=== PATIENT | female | born 1940 | race Caucasian/White ===

== ENCOUNTER 2017-04-22 18:23 | Observation (INO) | payer OTHER ==
[~2017-04-22] VITALS: Ht 170.2 cm; Wt 106.1 kg
[~2017-04-22 18:23] MED LIST: AMLODIPINE BESYL5 MG PO; ASPIR-TRIN325 M1 PO; ATORVASTATIN CA40 MG PO; CARAFATE100 MG/ML PO; CILOSTAZOL100 MG PO; CIPROFLOXACIN250 MG PO; ERGOCALCIF50000 UNIT PO; LEVOTHYROXINE112 MCG PO; LEVOTHYROXINE125 MCG PO; LISINOPRIL20 MG PO; LO-DOSE ASPIRIN81 M1 PO; LOPRESSOR50 MG PO; MELOXICAM7.5 MG PO; METFORMIN HCL500 M1 PO; METFORMIN HCL500 MG PO; NITROSTAT0.4 MG SL; PANTOPRAZOLE SO40 MG PO; SERTRALINE HCL50 MG PO; SUCRALFATE1 GM PO; SYNTHROID125 MCG PO; ZOFRAN4 MG PO
[2017-04-22 20:23] LABS: HEMATOCRIT 37.1 % (36.0-46.0); MCV 96.9 FL (83-99); MEAN PLAT.VOLUME 9.6 uM^3 (9.5-12.4); PLATELET COUNT 272 K/uL (156-360); RBC DIS.WIDTH-CV 13.2 % (11.8-14.6); RBC DIS.WIDTH-SD 47.4 % (39-53); RED BLOOD COUNT 3.83 M/uL (3.80-5.20); WHITE BLOOD COUNT 7.6 K/uL (4.1-10.2)
[2017-04-22 20:34] LABS: CHLORIDE 112 mEq/L (99-109); POTASSIUM 4.5 mEq/L (3.7-5.4); SODIUM 143 mEq/L (136-147)
[2017-04-22 20:37] LABS: GLUCOSE 89 mg/dL (70-99)
[2017-04-22 20:38] LABS: ANION GAP 9 MEQ/L (2-14); TOTAL BILIRUBIN 0.2 mg/dL (0.0-1.0)
[2017-04-22 20:40] LABS: ALKALINE PHOSPHATASE 96 IU/L (3-129); GFR ESTIMATE (CALCULATED) 39 mL/min/
[2017-04-22 20:41] LABS: UREA NITROGEN (BUN) 25 mg/dL (9-23)
[2017-04-22 20:43] LABS: CREATINE KINASE 79 IU/L (1-294)
[2017-04-22 20:44] LABS: TROP-I INTERPRETATION NEGATIVE; TROPONIN-I < 0.01 ng/mL (0.0-0.30)
[2017-04-22 20:58] LABS: ADD MIUA? NO; BILIRUBIN NEGATIVE; BLOOD NEGATIVE; COLOR YELLOW ((YELLOW)); GLUCOSE (STRIP) NEGATIVE; KETONES NEGATIVE; LEUKOCYTES NEGATIVE; NITRITE NEGATIVE; PROTEIN (STRIP) 30; SPECIFIC GRAVITY 1.019 (1.000-1.030); UCUL ADDED? NO; UROBILINOGEN 0.2 MG/DL (0.2-1.0)
[2017-04-23] VITALS (9 sets, daily range): BP systolic 156–191; BP diastolic 65–86
[2017-04-23] MEDS ORDERED: LOPRESSOR25 MG PO (01:57)
[2017-04-23] MEDS ORDERED: PEPCID AC20 MG PO (01:58)
[2017-04-23] MEDS ORDERED: AMARYL2 MG PO (01:58)
[2017-04-23] MEDS ORDERED: PHILLIPS' COLO1 EACH PO (01:58)
[2017-04-23] MEDS ORDERED: OMEPRAZOLE40 M1 PO (01:59)
[2017-04-23 07:58] LABS: POINT-OF-CARE METER ID UU13113700
[2017-04-23 09:15] LABS: HEMATOCRIT 33.5 % (36.0-46.0); MCH 31.3 PG (29.0-34.0); MCHC 31.9 G/DL (30.0-36.0); MEAN PLAT.VOLUME 9.9 uM^3 (9.5-12.4); PLATELET COUNT 238 K/uL (156-360); RBC DIS.WIDTH-CV 13.4 % (11.8-14.6); RBC DIS.WIDTH-SD 47.8 % (39-53); RED BLOOD COUNT 3.42 M/uL (3.80-5.20); WHITE BLOOD COUNT 6.6 K/uL (4.1-10.2)
[2017-04-23 09:35] LABS: ANION GAP 6 MEQ/L (2-14); CHLORIDE 109 MEQ/L (99-109); ERTH.SED.RATE 38 MM/HR (0-30); GFR ESTIMATE (CALCULATED) 57 mL/min/; GLUCOSE 95 mg/dL (70-99); POTASSIUM 3.9 MEQ/L (3.7-5.4); SAMPLE HEMOLYSIS CHECK 0; SAMPLE ICTERIC CHECK 0; SAMPLE LIPEMIA CHECK 0; SODIUM 139 MEQ/L (136-147); UREA NITROGEN (BUN) 18 mg/dL (9-23)
[2017-04-23 10:50] LABS: TROP-I INTERPRETATION NEGATIVE; TROPONIN-I < 0.01 ng/mL (0.0-0.30)
[2017-04-23] MEDS ORDERED: ACETAMINOPHEN650 M5 PO (11:06)
[2017-04-23] MEDS ORDERED: CYCLOBENZAPRINE10 MG PO (11:06)
[2017-04-23] MEDS ORDERED: PREDNISONE10 MG PO (11:06)
[2017-04-23] MEDS ORDERED: AMLODIPINE BESYL5 MG PO (11:06)
[2017-04-23 11:24] LABS: LYME DISEASE SEROLOGY SCREEN NEGATIVE (NEGATIVE)
[2017-04-23 12:36] LABS: POINT-OF-CARE METER ID UU13113700
[2017-04-23 14:22] LABS: C-REACTIVE PROTEIN < 1.0 MG/L (0-10)
[2017-04-23 17:06] LABS: POINT-OF-CARE METER ID UU13113700
[2017-04-23 21:41] LABS: POINT-OF-CARE METER ID UU13113700
[2017-04-24] VITALS: BP 170/60
[2017-04-24 04:25] VITALS: BP 160/58
[2017-04-24 05:53] LABS: HEMATOCRIT 35.4 % (36.0-46.0); MCH 31.4 PG (29.0-34.0); MCHC 32.2 G/DL (30.0-36.0); MCV 97.5 FL (83-99); MEAN PLAT.VOLUME 10.1 uM^3 (9.5-12.4); PLATELET COUNT 254 K/uL (156-360); RBC DIS.WIDTH-CV 13.5 % (11.8-14.6); RBC DIS.WIDTH-SD 48.9 % (39-53); RED BLOOD COUNT 3.63 M/uL (3.80-5.20); WHITE BLOOD COUNT 7.7 K/uL (4.1-10.2)
[2017-04-24 06:19] LABS: ANION GAP 6 MEQ/L (2-14); CHLORIDE 107 MEQ/L (99-109); GFR ESTIMATE (CALCULATED) 57 mL/min/; GLUCOSE 91 mg/dL (70-99); POTASSIUM 4.4 MEQ/L (3.7-5.4); SAMPLE HEMOLYSIS CHECK 0; SAMPLE ICTERIC CHECK 0; SAMPLE LIPEMIA CHECK 0; SODIUM 140 MEQ/L (136-147); UREA NITROGEN (BUN) 23 mg/dL (9-23)
[2017-04-24 07:07] VITALS: BP 140/60
[2017-04-24 08:09] LABS: POINT-OF-CARE METER ID UU14162513
== END 2017-04-24 10:18 | disposition home or self-care (01) ==
LOC: EME 18:23 → EDOF 04-23 00:39 → 5WEST 04-23 02:49
PROVIDERS: Hospitalist; Physician Assistant; Physician Assistant Medical; Student in an Organized Health Care Education/Training Program
DX: I16.9 Hypertensive crisis, unspecified (principal); I10 Essential (primary) hypertension; M79.1 Myalgia; E03.9 Hypothyroidism, unspecified; I25.10 Atherosclerotic heart disease of native coronary artery without angina pectoris; E11.9 Type 2 diabetes mellitus without complications; E78.5 Hyperlipidemia, unspecified; Z87.11 Personal history of peptic ulcer disease; M35.3 Polymyalgia rheumatica; M25.512 Pain in left shoulder; R70.0 Elevated erythrocyte sedimentation rate; Z88.5 Allergy status to narcotic agent; Z79.82 Long term (current) use of aspirin; Z79.84 Long term (current) use of oral hypoglycemic drugs
CPT/HCPCS: 71010; 80048; 80053; 81003; 82550; 82948; 84443; 84484; 85027; 85651; 86038; 86140; 86430; 86618; 93005; 99281; 99285; G0378; J0360; J1644; J1815; J1885; J2405; J3010; J3360; J7030; J7512

== ENCOUNTER 2017-06-10 15:22 | Inpatient (IN) | payer OTHER ==
[~2017-06-10] VITALS: Ht 170.2 cm; Wt 105.0 kg
[~2017-06-10 15:22] MED LIST changes: +ACETAMINOPHEN650 M5 PO; +AMARYL2 MG PO; +CYCLOBENZAPRINE10 MG PO; +LOPRESSOR25 MG PO; +OMEPRAZOLE40 M1 PO; +PEPCID AC20 MG PO; +PHILLIPS' COLO1 EACH PO; +PREDNISONE10 MG PO
[2017-06-10] MEDS ORDERED: NORCO 5/3251 TABLET PO (16:37)
[2017-06-10] MEDS ORDERED: ZOFRAN4 MG PO (16:52)
[2017-06-10 17:42] LABS: HEMATOCRIT 36.6 % (36.0-46.0); MCH 30.7 PG (29.0-34.0); MCHC 32.2 G/DL (30.0-36.0); MCV 95.3 FL (83-99); MEAN PLAT.VOLUME 9.5 uM^3 (9.5-12.4); PLATELET COUNT 252 K/uL (156-360); RBC DIS.WIDTH-CV 13.6 % (11.8-14.6); RBC DIS.WIDTH-SD 47.7 % (39-53); RED BLOOD COUNT 3.84 M/uL (3.80-5.20); WHITE BLOOD COUNT 12.1 K/uL (4.1-10.2)
[2017-06-10 17:55] LABS: CHLORIDE 107 mEq/L (99-109); SODIUM 138 mEq/L (136-147)
[2017-06-10 17:57] LABS: GLUCOSE 162 mg/dL (70-99)
[2017-06-10 17:58] LABS: ANION GAP 9 MEQ/L (2-14)
[2017-06-10 18:01] LABS: GFR ESTIMATE (CALCULATED) 42 mL/min/; UREA NITROGEN (BUN) 21 mg/dL (9-23)
[2017-06-10] MEDS ORDERED: ARTHRITIS PAIN650 M5 PO (19:05)
[2017-06-10] MEDS ORDERED: NORVASC5 MG PO (19:08)
[2017-06-10] MEDS ORDERED: SYNTHROID112 MCG PO (19:11)
[2017-06-10] MEDS ORDERED: PREDNISONE5 MG PO (19:16)
[2017-06-10 19:25] LABS: TROP-I INTERPRETATION NEGATIVE; TROPONIN-I < 0.01 ng/mL (0.0-0.30)
[2017-06-10 23:56] VITALS: BP 132/64
[2017-06-11 05:00] VITALS: BP 132/71
[2017-06-11 06:32] LABS: POINT-OF-CARE METER ID UU14208753
[2017-06-11 07:40] LABS: ANION GAP 6 MEQ/L (2-14); CHLORIDE 108 MEQ/L (99-109); GFR ESTIMATE (CALCULATED) 39 mL/min/; POTASSIUM 4.6 MEQ/L (3.7-5.4); SAMPLE HEMOLYSIS CHECK 0; SAMPLE ICTERIC CHECK 0; SAMPLE LIPEMIA CHECK 0; SODIUM 140 MEQ/L (136-147); UREA NITROGEN (BUN) 24 mg/dL (9-23)
[2017-06-11 07:41] LABS: GLUCOSE 73 mg/dL (70-99)
[2017-06-11 07:47] VITALS: BP 144/66
[2017-06-11 11:59] LABS: POINT-OF-CARE METER ID UU14188577
[2017-06-11 12:15] VITALS: BP 182/90
[2017-06-11 15:37] LABS: POINT-OF-CARE METER ID UU13113675
[2017-06-11 17:43] VITALS: BP 158/71
[2017-06-11 18:15] LABS: POINT-OF-CARE METER ID UU14208753
[2017-06-11 23:25] VITALS: BP 140/78
[2017-06-12] VITALS (7 sets, daily range): BP systolic 140–190; BP diastolic 50–85
[2017-06-12 06:35] LABS: POINT-OF-CARE METER ID UU14188577
[2017-06-12 07:10] LABS: HEMATOCRIT 31.7 % (36.0-46.0); MCH 30.6 PG (29.0-34.0); MCHC 31.2 G/DL (30.0-36.0); MCV 97.8 FL (83-99); MEAN PLAT.VOLUME 9.9 uM^3 (9.5-12.4); PLATELET COUNT 211 K/uL (156-360); RBC DIS.WIDTH-CV 13.7 % (11.8-14.6); RBC DIS.WIDTH-SD 49.1 % (39-53); RED BLOOD COUNT 3.24 M/uL (3.80-5.20); WHITE BLOOD COUNT 10.8 K/uL (4.1-10.2)
[2017-06-12 07:44] LABS: ANION GAP 11 MEQ/L (2-14); CHLORIDE 105 MEQ/L (99-109); GFR ESTIMATE (CALCULATED) 23 mL/min/; GLUCOSE 86 mg/dL (70-99); POTASSIUM 4.1 MEQ/L (3.7-5.4); SAMPLE HEMOLYSIS CHECK 0; SAMPLE ICTERIC CHECK 0; SAMPLE LIPEMIA CHECK 0; SODIUM 141 MEQ/L (136-147); UREA NITROGEN (BUN) 17 mg/dL (9-23)
[2017-06-12 17:08] LABS: POINT-OF-CARE METER ID UU14208753
[2017-06-12 21:29] LABS: POINT-OF-CARE METER ID UU14208750
[2017-06-12 21:46] LABS: POINT-OF-CARE METER ID UU14208750; POINT-OF-CARE USER ID STWHLR41
[2017-06-12 22:02] LABS: POINT-OF-CARE METER ID UU14208750
[2017-06-13] VITALS (7 sets, daily range): BP systolic 128–178; BP diastolic 58–79
[2017-06-13 04:06] LABS: POINT-OF-CARE METER ID UU14162508
[2017-06-13 06:50] LABS: POINT-OF-CARE METER ID UU14162508
[2017-06-13 07:04] LABS: HEMATOCRIT 29.8 % (36.0-46.0); MCH 31.5 PG (29.0-34.0); MCHC 32.2 G/DL (30.0-36.0); MCV 97.7 FL (83-99); MEAN PLAT.VOLUME 9.9 uM^3 (9.5-12.4); PLATELET COUNT 197 K/uL (156-360); RBC DIS.WIDTH-CV 13.8 % (11.8-14.6); RBC DIS.WIDTH-SD 49.2 % (39-53); RED BLOOD COUNT 3.05 M/uL (3.80-5.20); WHITE BLOOD COUNT 10.3 K/uL (4.1-10.2)
[2017-06-13 07:37] LABS: ANION GAP 5 MEQ/L (2-14); CHLORIDE 104 MEQ/L (99-109); GLUCOSE 91 mg/dL (70-99); POTASSIUM 4.5 MEQ/L (3.7-5.4); SAMPLE HEMOLYSIS CHECK 0; SAMPLE ICTERIC CHECK 0; SAMPLE LIPEMIA CHECK 0; SODIUM 139 MEQ/L (136-147); UREA NITROGEN (BUN) 17 mg/dL (9-23)
[2017-06-13 07:38] LABS: GFR ESTIMATE (CALCULATED) 57 mL/min/
[2017-06-13 11:37] LABS: POINT-OF-CARE METER ID UU14162508
[2017-06-13 16:31] LABS: POINT-OF-CARE METER ID UU14162508
[2017-06-13 21:01] LABS: POINT-OF-CARE METER ID UU14162508; POINT-OF-CARE USER ID STWHLR41
[2017-06-14 00:03] VITALS: BP 175/69
[2017-06-14 01:19] VITALS: BP 152/54
[2017-06-14 06:22] LABS: POINT-OF-CARE METER ID UU14162508
[2017-06-14 07:35] VITALS: BP 155/68
[2017-06-14 09:20] VITALS: BP 148/78
[2017-06-14] MEDS ORDERED: POLYETHYLENE GL17 GM PO (10:23)
[2017-06-14] MEDS ORDERED: ENDOCET 5-3251 EACH PO (10:23)
[2017-06-14] MEDS ORDERED: DOCUSATE SODIU100 MG PO (10:23)
[2017-06-14] MEDS ORDERED: AMLODIPINE BESY10 MG PO (10:23)
[2017-06-14 12:04] LABS: POINT-OF-CARE METER ID UU14162508
[2017-06-14] MEDS ORDERED: GLUCOTROL5 MG PO (16:00)
[2017-06-14] MEDS ORDERED: NOVOLOG 10100 UNITS/ SQ (16:05)
[2017-06-14] MEDS ORDERED: HEPARIN SO5000 UNIT4 SQ (16:07)
[2017-06-14] MEDS ORDERED: LIPITOR40 MG PO (16:08)
[2017-06-14] MEDS ORDERED: APRESOLINE10 MG IV (16:09)
[2017-06-14] MEDS ORDERED: MILK OF MAGN PO (16:11)
== END 2017-06-14 13:12 | DRG 493 ==
LOC: EME 15:22 → EDOF 19:34 → ENRESERV 19:45 → 3EAST 23:16 → 2EAST 06-12 08:01 → 3EAST 06-12 08:01 → ENRESERV 06-12 15:41 → 2EAST 06-12 17:43
PROVIDERS: Hospitalist; Internal Medicine; Internal Medicine Cardiovascular Disease; Physician Assistant; Physician Assistant Medical
PROC: 0PSF04Z Reposition Right Humeral Shaft with Internal Fixation Device, Open Approach (ICD-10-PCS; principal; 2017-06-11)
DX: S42.231A 3-part fracture of surgical neck of right humerus, initial encounter for closed fracture (principal); N17.9 Acute kidney failure, unspecified; E11.22 Type 2 diabetes mellitus with diabetic chronic kidney disease; E11.65 Type 2 diabetes mellitus with hyperglycemia; I13.10 Hypertensive heart and chronic kidney disease without heart failure, with stage 1 through stage 4 chronic kidney disease, or unspecified chronic kidney disease; Y92.254 Theater (live) as the place of occurrence of the external cause; W01.0XXA Fall on same level from slipping, tripping and stumbling without subsequent striking against object, initial encounter; M35.3 Polymyalgia rheumatica; M54.2 Cervicalgia; R55 Syncope and collapse; E03.9 Hypothyroidism, unspecified; E78.5 Hyperlipidemia, unspecified; N18.3 Chronic kidney disease, stage 3 (moderate); I25.10 Atherosclerotic heart disease of native coronary artery without angina pectoris; I73.9 Peripheral vascular disease, unspecified; Z87.891 Personal history of nicotine dependence; Z79.82 Long term (current) use of aspirin; Z79.52 Long term (current) use of systemic steroids; Z79.899 Other long term (current) drug therapy; Z87.11 Personal history of peptic ulcer disease; F32.9 Major depressive disorder, single episode, unspecified; E66.9 Obesity, unspecified; R00.1 Bradycardia, unspecified; I16.0 Hypertensive urgency; K58.0 Irritable bowel syndrome with diarrhea; K21.9 Gastro-esophageal reflux disease without esophagitis; M19.90 Unspecified osteoarthritis, unspecified site; F41.9 Anxiety disorder, unspecified; R11.2 Nausea with vomiting, unspecified; D64.9 Anemia, unspecified; E86.0 Dehydration; M81.0 Age-related osteoporosis without current pathological fracture; Z79.84 Long term (current) use of oral hypoglycemic drugs; Z82.49 Family history of ischemic heart disease and other diseases of the circulatory system; Z68.36 Body mass index [BMI] 36.0-36.9, adult
CPT/HCPCS: 70450; 71010; 72125; 73030; 73060; 73200; 76000; 80048; 81003; 82948; 84484; 85027; 93005; 94799; 99281; 99285; C1713; G0378; J0330; J0690; J1644; J1815; J1885; J2250; J2270; J2405; J2795; J3010; J7030; J7120; J7512

== ENCOUNTER 2017-06-14 11:12 | Inpatient (IN) | payer OTHER ==
[~2017-06-14] VITALS: Ht 170.2 cm; Wt 107.6 kg
[~2017-06-14 11:12] MED LIST changes: +AMLODIPINE BESY10 MG PO; +ARTHRITIS PAIN650 M5 PO; +DOCUSATE SODIU100 MG PO; +ENDOCET 5-3251 EACH PO; +NORCO 5/3251 TABLET PO; +NORVASC5 MG PO; +POLYETHYLENE GL17 GM PO; +PREDNISONE5 MG PO; +SYNTHROID112 MCG PO
[2017-06-14 13:15] VITALS: BP 158/58
[2017-06-14 15:27] VITALS: BP 142/74
[2017-06-14] MEDS ORDERED: GLUCOTROL5 MG PO (16:00)
[2017-06-14] MEDS ORDERED: NOVOLOG 10100 UNITS/ SQ (16:05)
[2017-06-14] MEDS ORDERED: HEPARIN SO5000 UNIT4 SQ (16:07)
[2017-06-14] MEDS ORDERED: LIPITOR40 MG PO (16:08)
[2017-06-14] MEDS ORDERED: APRESOLINE10 MG IV (16:09)
[2017-06-14] MEDS ORDERED: MILK OF MAGN PO (16:11)
[2017-06-14 16:48] LABS: POINT-OF-CARE METER ID UU13113712
[2017-06-14 18:47] LABS: HEMATOCRIT 31.9 % (36.0-46.0); MCH 31.3 PG (29.0-34.0); MCHC 31.7 G/DL (30.0-36.0); MCV 98.8 FL (83-99); MEAN PLAT.VOLUME 9.7 uM^3 (9.5-12.4); PLATELET COUNT 243 K/uL (156-360); RBC DIS.WIDTH-CV 13.5 % (11.8-14.6); RBC DIS.WIDTH-SD 49.1 % (39-53); RED BLOOD COUNT 3.23 M/uL (3.80-5.20)
[2017-06-14 19:10] LABS: ALKALINE PHOSPHATASE 65 IU/L (3-129); ANION GAP 7 MEQ/L (2-14); CHLORIDE 102 MEQ/L (99-109); GFR ESTIMATE (CALCULATED) 51 mL/min/; POTASSIUM 4.5 MEQ/L (3.7-5.4); SAMPLE HEMOLYSIS CHECK 0; SAMPLE ICTERIC CHECK 0; SAMPLE LIPEMIA CHECK 0; SODIUM 138 MEQ/L (136-147); TOTAL BILIRUBIN 0.4 MG/DL (0.0-1.0); UREA NITROGEN (BUN) 20 mg/dL (9-23)
[2017-06-14 19:11] LABS: GLUCOSE 173 mg/dL (70-99)
[2017-06-14 21:14] VITALS: BP 165/69
[2017-06-14 21:30] LABS: POINT-OF-CARE METER ID UU13113712
[2017-06-14 23:32] LABS: ADD MIUA? NO; BILIRUBIN NEGATIVE; BLOOD NEGATIVE; COLOR YELLOW ((YELLOW)); GLUCOSE (STRIP) NEGATIVE; KETONES NEGATIVE; LEUKOCYTES NEGATIVE; NITRITE NEGATIVE; PROTEIN (STRIP) NEGATIVE; UCUL ADDED? NO; UROBILINOGEN 0.2 MG/DL (0.2-1.0)
[2017-06-15 06:08] VITALS: BP 161/70
[2017-06-15 08:20] LABS: HEMATOCRIT 32.1 % (36.0-46.0); MCH 31.5 PG (29.0-34.0); MCHC 32.4 G/DL (30.0-36.0); MCV 97.3 FL (83-99); MEAN PLAT.VOLUME 9.6 uM^3 (9.5-12.4); PLATELET COUNT 260 K/uL (156-360); RBC DIS.WIDTH-CV 13.6 % (11.8-14.6); RBC DIS.WIDTH-SD 48.4 % (39-53); WHITE BLOOD COUNT 11.3 K/uL (4.1-10.2)
[2017-06-15 08:23] LABS: POINT-OF-CARE METER ID UU13113712
[2017-06-15 08:28] LABS: CHLORIDE 100 mEq/L (99-109); POTASSIUM 4.2 mEq/L (3.7-5.4); SODIUM 137 mEq/L (136-147)
[2017-06-15 08:30] LABS: GLUCOSE 132 mg/dL (70-99)
[2017-06-15 08:31] LABS: ANION GAP 10 MEQ/L (2-14)
[2017-06-15 08:33] LABS: GFR ESTIMATE (CALCULATED) 46 mL/min/
[2017-06-15 08:34] LABS: UREA NITROGEN (BUN) 18 mg/dL (9-23)
[2017-06-15 08:41] LABS: TROP-I INTERPRETATION NEGATIVE; TROPONIN-I < 0.01 ng/mL (0.0-0.30)
[2017-06-15 09:19] VITALS: BP 141/65
[2017-06-15 15:52] VITALS: BP 138/74
[2017-06-15 20:59] VITALS: BP 137/63
[2017-06-16 05:03] VITALS: BP 143/67
[2017-06-16 07:34] VITALS: BP 132/60
[2017-06-16 11:57] VITALS: BP 162/67
[2017-06-16 15:37] VITALS: BP 139/63
[2017-06-16 16:51] LABS: POINT-OF-CARE METER ID UU13113712
[2017-06-16 21:25] LABS: POINT-OF-CARE METER ID UU13113712
[2017-06-17 04:40] VITALS: BP 158/71
[2017-06-17 05:41] LABS: HEMATOCRIT 28.5 % (36.0-46.0); MCH 30.8 PG (29.0-34.0); MCHC 31.2 G/DL (30.0-36.0); MCV 98.6 FL (83-99); MEAN PLAT.VOLUME 9.5 uM^3 (9.5-12.4); PLATELET COUNT 273 K/uL (156-360); RBC DIS.WIDTH-CV 13.6 % (11.8-14.6); RBC DIS.WIDTH-SD 48.8 % (39-53); RED BLOOD COUNT 2.89 M/uL (3.80-5.20)
[2017-06-17 06:13] LABS: ANION GAP 7 MEQ/L (2-14); CHLORIDE 100 MEQ/L (99-109); GFR ESTIMATE (CALCULATED) 46 mL/min/; POTASSIUM 4.5 MEQ/L (3.7-5.4); SAMPLE HEMOLYSIS CHECK 0; SAMPLE ICTERIC CHECK 0; SAMPLE LIPEMIA CHECK 0; SODIUM 139 MEQ/L (136-147)
[2017-06-17 06:14] LABS: GLUCOSE 82 mg/dL (70-99); UREA NITROGEN (BUN) 28 mg/dL (9-23)
[2017-06-17 08:01] LABS: POINT-OF-CARE METER ID UU13113720
[2017-06-17 12:14] LABS: POINT-OF-CARE METER ID UU13113712; POINT-OF-CARE USER ID AHSSSJB31
[2017-06-17 15:40] VITALS: BP 146/77
[2017-06-17 16:29] LABS: POINT-OF-CARE METER ID UU13113712
[2017-06-17 16:36] VITALS: BP 126/58
[2017-06-17 21:11] LABS: POINT-OF-CARE METER ID UU13113720
[2017-06-18 05:41] VITALS: BP 141/62
[2017-06-18 06:58] LABS: POINT-OF-CARE METER ID UU13113712; POINT-OF-CARE USER ID ENVGAF
[2017-06-18 11:28] LABS: POINT-OF-CARE METER ID UU13113712; POINT-OF-CARE USER ID ENVGAF
[2017-06-18 15:19] VITALS: BP 123/58
[2017-06-18 16:40] LABS: POINT-OF-CARE METER ID UU13113712
[2017-06-18 21:16] LABS: POINT-OF-CARE METER ID UU13113712
[2017-06-19 04:25] VITALS: BP 168/72
[2017-06-19 06:36] LABS: POINT-OF-CARE METER ID UU13113712; POINT-OF-CARE USER ID ENVGAF
[2017-06-19 10:58] LABS: POINT-OF-CARE METER ID UU13113712
[2017-06-19 15:53] VITALS: BP 131/62
[2017-06-19 16:36] LABS: POINT-OF-CARE METER ID UU13113720
[2017-06-19 21:04] LABS: POINT-OF-CARE METER ID UU13113712
[2017-06-20 05:06] VITALS: BP 146/50
[2017-06-20 06:55] LABS: POINT-OF-CARE METER ID UU13113720; POINT-OF-CARE USER ID ENVGAF
[2017-06-20 11:34] LABS: POINT-OF-CARE METER ID UU13113712
[2017-06-20 15:41] VITALS: BP 133/61
[2017-06-20 17:11] LABS: POINT-OF-CARE METER ID UU13113720
[2017-06-20 21:19] LABS: POINT-OF-CARE METER ID UU13113720
[2017-06-21 05:38] VITALS: BP 187/84
[2017-06-21 07:39] LABS: POINT-OF-CARE METER ID UU14174215
[2017-06-21 11:46] LABS: POINT-OF-CARE METER ID UU14174215
[2017-06-21 15:36] VITALS: BP 185/79
[2017-06-21 16:15] VITALS: BP 150/58
[2017-06-21 16:53] LABS: POINT-OF-CARE METER ID UU14174215
[2017-06-21 20:52] LABS: POINT-OF-CARE METER ID UU14174215
[2017-06-22 05:11] VITALS: BP 179/74
[2017-06-22 05:41] VITALS: BP 138/58
[2017-06-22 07:17] LABS: POINT-OF-CARE METER ID UU13113720
[2017-06-22 11:47] LABS: POINT-OF-CARE METER ID UU13113720
[2017-06-22 15:12] VITALS: BP 112/50
[2017-06-22 15:56] LABS: POINT-OF-CARE METER ID UU14174215
[2017-06-22 21:30] LABS: POINT-OF-CARE METER ID UU13113720
[2017-06-23 04:57] VITALS: BP 142/58
[2017-06-23 06:54] LABS: POINT-OF-CARE METER ID UU13113720; POINT-OF-CARE USER ID ENVGAF
[2017-06-23 11:19] LABS: POINT-OF-CARE METER ID UU14174215
[2017-06-23 12:12] LABS: POINT-OF-CARE METER ID UU13113720
[2017-06-23 15:51] VITALS: BP 119/64
[2017-06-23 16:42] LABS: POINT-OF-CARE METER ID UU14174215
[2017-06-23 21:09] LABS: POINT-OF-CARE METER ID UU14174215
[2017-06-24 04:50] VITALS: BP 146/62
[2017-06-24 06:51] LABS: POINT-OF-CARE METER ID UU13113720; POINT-OF-CARE USER ID ENVGAF
[2017-06-24 12:13] LABS: POINT-OF-CARE METER ID UU13113720
[2017-06-24 16:00] VITALS: BP 160/42
[2017-06-24 16:44] LABS: POINT-OF-CARE METER ID UU13113720
[2017-06-24 21:07] LABS: POINT-OF-CARE METER ID UU14174215
[2017-06-25 05:47] VITALS: BP 140/66
[2017-06-25 07:21] LABS: POINT-OF-CARE METER ID UU14174215
[2017-06-25 11:30] LABS: POINT-OF-CARE METER ID UU14174215
[2017-06-25 15:27] VITALS: BP 110/58
[2017-06-25 16:25] LABS: POINT-OF-CARE METER ID UU13113720
[2017-06-25 21:13] LABS: POINT-OF-CARE METER ID UU14174215
[2017-06-25 21:25] VITALS: BP 116/58
[2017-06-26 05:34] VITALS: BP 130/48
[2017-06-26 07:15] LABS: POINT-OF-CARE METER ID UU14174215
[2017-06-26 09:30] LABS: ADD MIUA? YES; BILIRUBIN NEGATIVE; BLOOD SMALL; COLOR YELLOW ((YELLOW)); GLUCOSE (STRIP) NEGATIVE; KETONES NEGATIVE; LEUKOCYTES LARGE; NITRITE POSITIVE; PROTEIN (STRIP) 30; SPECIFIC GRAVITY 1.015 (1.000-1.030); UROBILINOGEN 0.2 MG/DL (0.2-1.0)
[2017-06-26 09:50] LABS: BACTERIA NONE SEEN /HPF; BUDDING YEAST 4+; EPITHELIAL CELLS NONE SEEN /HPF; MUCUS NONE SEEN /LPF; RED BLOOD CELLS 0-5 /HPF (0-5); WHITE BLOOD CELLS TNTC /HPF (0-5)
[2017-06-26 15:33] VITALS: BP 120/56
[2017-06-27 05:07] VITALS: BP 138/58
[2017-06-27 06:05] LABS: POINT-OF-CARE METER ID UU14174215
[2017-06-27 15:04] VITALS: BP 120/60
[2017-06-28 06:13] VITALS: BP 128/60
[2017-06-28 06:42] LABS: POINT-OF-CARE METER ID UU14174215
[2017-06-28 06:42] LABS: POINT-OF-CARE METER ID UU14174215
[2017-06-28 07:45] LABS: POINT-OF-CARE METER ID UU14174215
[2017-06-28 08:54] VITALS: BP 138/52
[2017-06-28 15:00] VITALS: BP 132/46
[2017-06-28 17:20] LABS: POINT-OF-CARE METER ID UU13113720
[2017-06-29 05:06] VITALS: BP 136/65
[2017-06-29 06:35] LABS: ALKALINE PHOSPHATASE 163 IU/L (3-129); ANION GAP 8 MEQ/L (2-14); CHLORIDE 105 MEQ/L (99-109); GFR ESTIMATE (CALCULATED) 31 mL/min/; GLUCOSE 73 mg/dL (70-99); POTASSIUM 4.6 MEQ/L (3.7-5.4); SAMPLE HEMOLYSIS CHECK 0; SAMPLE ICTERIC CHECK 0; SAMPLE LIPEMIA CHECK 0; SODIUM 137 MEQ/L (136-147); TOTAL BILIRUBIN 0.4 MG/DL (0.0-1.0); UREA NITROGEN (BUN) 36 mg/dL (9-23)
[2017-06-29 08:53] LABS: HEMATOCRIT 34.8 % (36.0-46.0); MCH 32.3 PG (29.0-34.0); MCHC 31.9 G/DL (30.0-36.0); MCV 101.2 FL (83-99); MEAN PLAT.VOLUME 9.4 uM^3 (9.5-12.4); RBC DIS.WIDTH-CV 14.6 % (11.8-14.6); RED BLOOD COUNT 3.44 M/uL (3.80-5.20); WHITE BLOOD COUNT 12.7 K/uL (4.1-10.2)
[2017-06-29 09:02] LABS: PLATELET COUNT 392 K/uL (156-360)
[2017-06-29 10:46] LABS: POINT-OF-CARE METER ID UU13113720
[2017-06-29 15:30] VITALS: BP 128/50
[2017-06-29 21:29] LABS: POINT-OF-CARE METER ID UU13113720
[2017-06-30] MEDS ORDERED: Lidoderm 5% Patch TD (00:19)
[2017-06-30] MEDS ORDERED: AMLODIPINE BESY10 MG PO (00:19)
[2017-06-30] MEDS ORDERED: BACTRIM,SEPT1 TABLET PO (00:19)
[2017-06-30] MEDS ORDERED: GLUCOTROL5 MG PO (00:19)
[2017-06-30] MEDS ORDERED: LOPRESSOR25 MG PO (00:19)
[2017-06-30] MEDS ORDERED: CILOSTAZOL100 MG PO (00:19)
[2017-06-30] MEDS ORDERED: TRAMADOL HCL50 MG PO (00:19)
[2017-06-30 04:43] VITALS: BP 137/64
[2017-06-30 09:07] LABS: ANION GAP 10 MEQ/L (2-14); CHLORIDE 105 MEQ/L (99-109); GFR ESTIMATE (CALCULATED) 29 mL/min/; POTASSIUM 4.8 MEQ/L (3.7-5.4); SAMPLE HEMOLYSIS CHECK 0; SAMPLE ICTERIC CHECK 0; SAMPLE LIPEMIA CHECK 0; SODIUM 137 MEQ/L (136-147); UREA NITROGEN (BUN) 40 mg/dL (9-23)
[2017-06-30 09:10] LABS: GLUCOSE 99 mg/dL (70-99)
[2017-06-30 15:28] VITALS: BP 124/50
[2017-06-30] MEDS ORDERED: LIDODERM 5% P1 PATCH TD (16:24)
[2017-07-01 04:55] VITALS: BP 123/57
[2017-07-01 06:50] LABS: POINT-OF-CARE METER ID UU13113720
[2017-07-01 08:33] LABS: ANION GAP 9 MEQ/L (2-14); CHLORIDE 106 MEQ/L (99-109); GFR ESTIMATE (CALCULATED) 29 mL/min/; GLUCOSE 96 mg/dL (70-99); POTASSIUM 4.6 MEQ/L (3.7-5.4); SAMPLE HEMOLYSIS CHECK 0; SAMPLE ICTERIC CHECK 0; SAMPLE LIPEMIA CHECK 0; SODIUM 137 MEQ/L (136-147); UREA NITROGEN (BUN) 45 mg/dL (9-23)
[2017-07-01] MEDS ORDERED: APRESOLINE25 MG PO (13:05)
[2017-07-01] MEDS ORDERED: LEVOFLOXACIN250 MG PO (13:05)
== END 2017-07-01 13:58 | disposition home health service (06) | DRG 560 ==
LOC: 3WEST 11:12 → ENPENDDIS 06-30 → 3WEST 07-01 13:58
PROVIDERS: Hospitalist; Internal Medicine; Physical Medicine & Rehabilitation; Physical Medicine & Rehabilitation Pain Medicine
PROC: F07M0ZZ Range of Motion and Joint Mobility Treatment of Musculoskeletal System - Whole Body (ICD-10-PCS; principal; 2017-06-14)
DX: S42.201D Unspecified fracture of upper end of right humerus, subsequent encounter for fracture with routine healing (principal); W19.XXXD Unspecified fall, subsequent encounter; N17.9 Acute kidney failure, unspecified; T37.0X5A Adverse effect of sulfonamides, initial encounter; N12 Tubulo-interstitial nephritis, not specified as acute or chronic; B96.4 Proteus (mirabilis) (morganii) as the cause of diseases classified elsewhere; E10.22 Type 1 diabetes mellitus with diabetic chronic kidney disease; E10.649 Type 1 diabetes mellitus with hypoglycemia without coma; E86.1 Hypovolemia; I95.1 Orthostatic hypotension; I65.23 Occlusion and stenosis of bilateral carotid arteries; I13.10 Hypertensive heart and chronic kidney disease without heart failure, with stage 1 through stage 4 chronic kidney disease, or unspecified chronic kidney disease; N18.3 Chronic kidney disease, stage 3 (moderate); R26.81 Unsteadiness on feet; E03.9 Hypothyroidism, unspecified; R05 Cough; E78.5 Hyperlipidemia, unspecified; M35.3 Polymyalgia rheumatica; F32.9 Major depressive disorder, single episode, unspecified; F41.9 Anxiety disorder, unspecified; I25.10 Atherosclerotic heart disease of native coronary artery without angina pectoris; K21.9 Gastro-esophageal reflux disease without esophagitis; K58.0 Irritable bowel syndrome with diarrhea; M19.90 Unspecified osteoarthritis, unspecified site; Z68.37 Body mass index [BMI] 37.0-37.9, adult; Z82.49 Family history of ischemic heart disease and other diseases of the circulatory system; Z87.11 Personal history of peptic ulcer disease; Z87.891 Personal history of nicotine dependence; Z95.5 Presence of coronary angioplasty implant and graft
CPT/HCPCS: 71010; 73030; 73060; 76770; 80048; 80053; 80069; 81003; 82948; 83605; 84484; 85027; 87077; 87086; 87186; 87493; 93005; 93306; 93880; 94799; 97110 GO; 97530 GP; J1644; J1815; J7030; J7040; J7512

== ENCOUNTER 2017-09-10 15:28 | Inpatient (IN) | payer OTHER ==
[~2017-09-10] VITALS: Ht 170.2 cm; Wt 101.1 kg
[~2017-09-10 15:28] MED LIST changes: +APRESOLINE10 MG IV; +APRESOLINE25 MG PO; +BACTRIM,SEPT1 TABLET PO; +GLUCOTROL5 MG PO; +HEPARIN SO5000 UNIT4 SQ; +LEVOFLOXACIN250 MG PO; +LIDODERM 5% P1 PATCH TD; +LIPITOR40 MG PO; +Lidoderm 5% Patch TD; +MILK OF MAGN PO; +NOVOLOG 10100 UNITS/ SQ; +TRAMADOL HCL50 MG PO
[2017-09-10 16:02] LABS: HEMATOCRIT 43.5 % (36.0-46.0); MCH 32.3 PG (29.0-34.0); MCHC 32.2 G/DL (30.0-36.0); MCV 100.2 FL (83-99); MEAN PLAT.VOLUME 9.9 uM^3 (9.5-12.4); PLATELET COUNT 296 K/uL (156-360); RBC DIS.WIDTH-CV 13.1 % (11.8-14.6); RBC DIS.WIDTH-SD 48.6 % (39-53); RED BLOOD COUNT 4.34 M/uL (3.80-5.20); WHITE BLOOD COUNT 12.9 K/uL (4.1-10.2)
[2017-09-10 16:09] LABS: CHLORIDE 107 mEq/L (99-109); POTASSIUM 4.5 mEq/L (3.7-5.4); SODIUM 136 mEq/L (136-147)
[2017-09-10 16:11] LABS: GLUCOSE 380 mg/dL (70-99)
[2017-09-10 16:13] LABS: ANION GAP 10 MEQ/L (2-14)
[2017-09-10 16:15] LABS: GFR ESTIMATE (CALCULATED) 39 mL/min/
[2017-09-10 16:16] LABS: UREA NITROGEN (BUN) 22 mg/dL (9-23)
[2017-09-10 16:23] LABS: TROP-I INTERPRETATION NEGATIVE; TROPONIN-I 0.05 ng/mL (0.0-0.30)
[2017-09-10 18:28] LABS: ADD MIUA? YES; BILIRUBIN NEGATIVE; BLOOD NEGATIVE; COLOR YELLOW ((YELLOW)); GLUCOSE (STRIP) 50; KETONES NEGATIVE; LEUKOCYTES NEGATIVE; NITRITE NEGATIVE; PROTEIN (STRIP) 30; SPECIFIC GRAVITY 1.021 (1.000-1.030)
[2017-09-10 18:35] LABS: BACTERIA RARE /HPF; EPITHELIAL CELLS 1+ /HPF; MUCUS TRACE /LPF; UCUL ADDED? NO; WHITE BLOOD CELLS 0-5 /HPF (0-5)
[2017-09-10 20:15] LABS: INTER. NORMALIZED RATIO 1.1; PROTHROMBIN TIME 12.5 SEC (10.2-12.9)
[2017-09-10 20:18] LABS: PTT 27.2 SEC (25-37)
[2017-09-10] MEDS ORDERED: GLIMEPIRIDE4 MG PO (21:07)
[2017-09-10] MEDS ORDERED: HYDROCHLOROTH12.5 M3 PO (21:07)
[2017-09-10] MEDS ORDERED: ASPIRIN EC325 MG PO (21:08)
[2017-09-10] MEDS ORDERED: ERGOCALCIF50000 UNIT PO (21:08)
[2017-09-10] MEDS ORDERED: LISINOPRIL30 MG PO (21:09)
[2017-09-10 22:22] LABS: TROP-I INTERPRETATION NEGATIVE; TROPONIN-I 0.05 ng/mL (0.0-0.30)
[2017-09-10 23:56] VITALS: BP 148/67
[2017-09-11 00:21] LABS: POINT-OF-CARE METER ID UU14314084
[2017-09-11 01:57] LABS: POINT-OF-CARE METER ID UU14162508
[2017-09-11 04:00] VITALS: BP 145/70
[2017-09-11 04:28] LABS: HEMATOCRIT 37.9 % (36.0-46.0); MCH 32.7 PG (29.0-34.0); MCHC 32.5 G/DL (30.0-36.0); MCV 100.8 FL (83-99); PLATELET COUNT 257 K/uL (156-360); RBC DIS.WIDTH-CV 13.2 % (11.8-14.6); RBC DIS.WIDTH-SD 49.1 % (39-53); RED BLOOD COUNT 3.76 M/uL (3.80-5.20); WHITE BLOOD COUNT 9.7 K/uL (4.1-10.2)
[2017-09-11 04:47] LABS: CHLORIDE 109 mEq/L (99-109); SODIUM 142 mEq/L (136-147)
[2017-09-11 04:49] LABS: TROP-I INTERPRETATION NEGATIVE; TROPONIN-I 0.08 ng/mL (0.0-0.30)
[2017-09-11 04:51] LABS: TOTAL BILIRUBIN 0.2 mg/dL (0.0-1.0)
[2017-09-11 05:06] LABS: ANION GAP 9 MEQ/L (2-14)
[2017-09-11 05:09] LABS: ALKALINE PHOSPHATASE 73 IU/L (3-129); GFR ESTIMATE (CALCULATED) 57 mL/min/
[2017-09-11 05:10] LABS: UREA NITROGEN (BUN) 18 mg/dL (9-23)
[2017-09-11 05:11] LABS: GLUCOSE 120 mg/dL (70-99)
[2017-09-11 06:29] LABS: POINT-OF-CARE METER ID UU14162508
[2017-09-11 07:24] VITALS: BP 179/75
[2017-09-11 10:16] LABS: INTERNAL CONTROL VALID? YES
[2017-09-11] MEDS ORDERED: ELIQUIS5 MG PO ×2 (10:27→10:30)
[2017-09-11] MEDS ORDERED: CILOSTAZOL100 MG PO (10:37)
[2017-09-11 10:44] LABS: C DIFF TOXIN NEGATIVE (NEGATIVE)
[2017-09-11 10:45] LABS: PROBE CHECK PASS; SPECIMEN PROCESSING CONTROL PASS
[2017-09-11 11:50] VITALS: BP 186/81
[2017-09-11 12:08] LABS: POINT-OF-CARE METER ID UU14314084; POINT-OF-CARE USER ID PUTDRM
[2017-09-11 15:20] VITALS: BP 151/67
[2017-09-11 16:51] LABS: POINT-OF-CARE METER ID UU14314084; POINT-OF-CARE USER ID PUTDRM
[2017-09-11 19:00] VITALS: BP 140/63
[2017-09-11 19:02] LABS: INTER. NORMALIZED RATIO 1.6
[2017-09-11 19:10] LABS: PROTHROMBIN TIME 18.5 SEC (10.2-12.9); PTT 29.5 SEC (25-37)
[2017-09-11 21:23] LABS: POINT-OF-CARE METER ID UU14314084
[2017-09-11 23:45] VITALS: BP 141/64
[2017-09-12 03:28] VITALS: BP 159/70
[2017-09-12 06:57] LABS: POINT-OF-CARE METER ID UU14314084
[2017-09-12 07:12] LABS: Estimated Average Glucose 146 mg/dL (70-123); HEMOGLOBIN A1c (GLYCOHEMOGLOB) 6.7 % HGB (Below 5.7)
[2017-09-12 07:22] VITALS: BP 190/84
[2017-09-12 07:45] LABS: HEMATOCRIT 38.9 % (36.0-46.0); MCH 31.6 PG (29.0-34.0); MCHC 31.6 G/DL (30.0-36.0); MEAN PLAT.VOLUME 9.7 uM^3 (9.5-12.4); PLATELET COUNT 267 K/uL (156-360); RBC DIS.WIDTH-CV 13.3 % (11.8-14.6); RBC DIS.WIDTH-SD 49.5 % (39-53); RED BLOOD COUNT 3.89 M/uL (3.80-5.20); WHITE BLOOD COUNT 8.2 K/uL (4.1-10.2)
[2017-09-12 08:12] LABS: ANION GAP 7 MEQ/L (2-14); CHLORIDE 106 MEQ/L (99-109); GFR ESTIMATE (CALCULATED) > 59 mL/min/; GLUCOSE 128 mg/dL (70-99); POTASSIUM 4.6 MEQ/L (3.7-5.4); SAMPLE HEMOLYSIS CHECK 0; SAMPLE ICTERIC CHECK 0; SAMPLE LIPEMIA CHECK 0; SODIUM 140 MEQ/L (136-147); UREA NITROGEN (BUN) 13 mg/dL (9-23)
== END 2017-09-12 12:12 | disposition home or self-care (01) | DRG 175 ==
LOC: EME 15:28 → EDOF 20:36 → 2EAST 20:36 → ENRESERV 20:39 → 2EAST 23:20
PROVIDERS: Internal Medicine; Physician Assistant
DX: I26.09 Other pulmonary embolism with acute cor pulmonale (principal); N17.9 Acute kidney failure, unspecified; J98.11 Atelectasis; F33.9 Major depressive disorder, recurrent, unspecified; I48.4 Atypical atrial flutter; I47.1 Supraventricular tachycardia; I82.441 Acute embolism and thrombosis of right tibial vein; E03.9 Hypothyroidism, unspecified; N18.3 Chronic kidney disease, stage 3 (moderate); K58.0 Irritable bowel syndrome with diarrhea; K21.9 Gastro-esophageal reflux disease without esophagitis; E11.22 Type 2 diabetes mellitus with diabetic chronic kidney disease; E11.51 Type 2 diabetes mellitus with diabetic peripheral angiopathy without gangrene; E11.65 Type 2 diabetes mellitus with hyperglycemia; E66.9 Obesity, unspecified; E78.5 Hyperlipidemia, unspecified; F41.9 Anxiety disorder, unspecified; I13.10 Hypertensive heart and chronic kidney disease without heart failure, with stage 1 through stage 4 chronic kidney disease, or unspecified chronic kidney disease; I25.10 Atherosclerotic heart disease of native coronary artery without angina pectoris; M19.90 Unspecified osteoarthritis, unspecified site; M35.3 Polymyalgia rheumatica; Z79.82 Long term (current) use of aspirin; Z79.01 Long term (current) use of anticoagulants; Z79.84 Long term (current) use of oral hypoglycemic drugs; Z87.11 Personal history of peptic ulcer disease; Z92.3 Personal history of irradiation; Z90.49 Acquired absence of other specified parts of digestive tract; Z68.34 Body mass index [BMI] 34.0-34.9, adult; Z82.49 Family history of ischemic heart disease and other diseases of the circulatory system
CPT/HCPCS: 71020; 71275; 80048; 80053; 81003; 82010; 82948; 83036; 83605; 83630; 84443; 84484; 85027; 85379; 85610; 85730; 87040; 87045; 87046; 87493; 87506; 93005; 93970; 99281; 99284; J0360; J1815; J3010; J7030; J7512

== ENCOUNTER 2017-11-12 08:38 | Emergency (ER) | payer OTHER ==
[~2017-11-12] VITALS: Ht 170.2 cm; Wt 104.1 kg
[~2017-11-12 08:38] MED LIST changes: +ASPIRIN EC325 MG PO; +ELIQUIS5 MG PO; +FOLIC ACID1 MG PO; +GLIMEPIRIDE4 MG PO; +HYDROCHLOROTH12.5 M3 PO; +LISINOPRIL30 MG PO
[2017-11-12 11:25] LABS: BASOPHIL (%) 0.5 % (0-1); BASOPHIL COUNT 0.1 K/uL (0-0.1); EOSINOPHIL (%) 1.8 % (0-5); EOSINOPHIL COUNT 0.2 K/uL (0-0.3); HEMATOCRIT 40.7 % (36.0-46.0); HEMOGLOBIN 13.1 G/DL (11.9-15.5); IMMATURE GRANULOCYTE (%) 0.4 % (0.0-0.7); LYMPHOCYTE (%) 15.1 % (15-42); LYMPHOCYTE COUNT 1.4 K/uL (1.0-2.8); MCH 32.2 PG (29.0-34.0); MCHC 32.2 G/DL (30.0-36.0); MONOCYTE (%) 6.4 % (3-12); MONOCYTE COUNT 0.6 K/uL (0-0.8); NEUTROPHIL (%) 75.8 % (45-76); NEUTROPHIL COUNT 7.1 K/uL (1.8-6.4); PLATELET COUNT 247 K/uL (156-360); RBC DIS.WIDTH-CV 13.2 % (11.8-14.6); RBC DIS.WIDTH-SD 49.1 % (39-53); RED BLOOD COUNT 4.07 M/uL (3.80-5.20); WHITE BLOOD COUNT 9.3 K/uL (4.1-10.2)
[2017-11-12 11:36] LABS: ALBUMIN 3.6 g/dL (3.2-4.8)
[2017-11-12 11:37] LABS: CHLORIDE 106 mEq/L (99-109); POTASSIUM 4.3 mEq/L (3.7-5.4); SODIUM 141 mEq/L (136-147)
[2017-11-12 11:39] LABS: GLUCOSE 89 mg/dL (70-99); TOTAL PROTEIN 6.8 g/dL (6.4-8.3)
[2017-11-12 11:41] LABS: TOTAL BILIRUBIN 0.5 mg/dL (0.0-1.0)
[2017-11-12 11:42] LABS: ALKALINE PHOSPHATASE 86 IU/L (3-129)
[2017-11-12 11:43] LABS: GFR ESTIMATE (CALCULATED) 57 mL/min/
[2017-11-12 11:44] LABS: AST (GOT) 13 IU/L (2-34); UREA NITROGEN (BUN) 15 mg/dL (9-23)
[2017-11-12 11:45] LABS: ALT (GPT) 13 IU/L (3-49); TROP-I INTERPRETATION NEGATIVE; TROPONIN-I < 0.01 ng/mL (0.0-0.30)
[2017-11-12 11:46] LABS: CREATINE KINASE 36 IU/L (1-294); TOTAL CK 36 IU/L (1-294)
[2017-11-12 11:52] LABS: CKMB RELATIVE INDEX 2.8 (0.0-3.9)
[2017-11-12 12:21] LABS: HIGH-SENS C-REACTIVE PROTEIN 1.02 MG/DL (0.02-0.20)
[2017-11-12 12:37] LABS: ERTH.SED.RATE 49 MM/HR (0-30)
[2017-11-12 13:35] LABS: THYROTROPIN (TSH) 7.1 MIU/L (0.4-5.5)
[2017-11-12] MEDS ORDERED: ULTRAM50 MG PO (15:56)
[2017-11-12 16:10] VITALS: BP 152/79
== END 2017-11-12 16:19 | disposition home or self-care (01) ==
LOC: EME 08:38
PROVIDERS: Emergency Medicine
DX: M35.3 Polymyalgia rheumatica (principal); R79.89 Other specified abnormal findings of blood chemistry; Z91.81 History of falling; E05.90 Thyrotoxicosis, unspecified without thyrotoxic crisis or storm; E11.9 Type 2 diabetes mellitus without complications; I10 Essential (primary) hypertension; E78.5 Hyperlipidemia, unspecified; K21.9 Gastro-esophageal reflux disease without esophagitis; F32.9 Major depressive disorder, single episode, unspecified; Z87.11 Personal history of peptic ulcer disease; Z87.19 Personal history of other diseases of the digestive system; Z90.49 Acquired absence of other specified parts of digestive tract; Z79.82 Long term (current) use of aspirin; Z79.84 Long term (current) use of oral hypoglycemic drugs; Z88.5 Allergy status to narcotic agent
CPT/HCPCS: 71046; 80053; 82550; 82553; 84439; 84443; 84484; 85025; 85651; 86141

== ENCOUNTER 2018-02-12 09:56 | Emergency (ER) | payer OTHER ==
[~2018-02-12] VITALS: Ht 170.2 cm; Wt 105.2 kg
[~2018-02-12 09:56] MED LIST changes: +ULTRAM50 MG PO
[2018-02-12] MEDS ORDERED: NORCO 5/3251 TABLET PO (11:51)
[2018-02-12 12:12] VITALS: BP 164/76
== END 2018-02-12 12:14 | disposition home or self-care (01) ==
LOC: EME 09:56
DX: S80.01XA Contusion of right knee, initial encounter (principal); S42.91XA Fracture of right shoulder girdle, part unspecified, initial encounter for closed fracture; W18.30XA Fall on same level, unspecified, initial encounter; E11.9 Type 2 diabetes mellitus without complications; E78.5 Hyperlipidemia, unspecified; I10 Essential (primary) hypertension; Z86.718 Personal history of other venous thrombosis and embolism; Z88.5 Allergy status to narcotic agent
CPT/HCPCS: 73030; 73564; 99281; 99284

== ENCOUNTER 2018-03-25 09:40 | Emergency (ER) | payer OTHER ==
[~2018-03-25] VITALS: Ht 170.2 cm; Wt 103.1 kg
[2018-03-25 12:37] LABS: HEMATOCRIT 38.3 % (36.0-46.0); HEMOGLOBIN 12.4 G/DL (11.9-15.5); MCH 32.9 PG (29.0-34.0); MCHC 32.4 G/DL (30.0-36.0); MCV 101.6 FL (83-99); PLATELET COUNT 261 K/uL (156-360); RBC DIS.WIDTH-SD 49.1 % (39-53); RED BLOOD COUNT 3.77 M/uL (3.80-5.20); WHITE BLOOD COUNT 9.7 K/uL (4.1-10.2)
[2018-03-25 12:48] LABS: CHLORIDE 107 mEq/L (99-109); POTASSIUM 4.1 mEq/L (3.7-5.4); SODIUM 141 mEq/L (136-147)
[2018-03-25 12:50] LABS: GLUCOSE 194 mg/dL (70-99); INTER. NORMALIZED RATIO 1.6
[2018-03-25 12:52] LABS: PTT 28.6 SEC (25-37)
[2018-03-25 12:53] LABS: GFR ESTIMATE (CALCULATED) 57 mL/min/
[2018-03-25 12:54] LABS: UREA NITROGEN (BUN) 19 mg/dL (9-23)
[2018-03-25] MEDS ORDERED: PERCOCET 5/31 TABLET PO (14:08)
[2018-03-25 14:28] VITALS: BP 134/86
== END 2018-03-25 14:45 | disposition home or self-care (01) ==
LOC: EME 09:40
PROVIDERS: Physician Assistant
DX: M25.461 Effusion, right knee (principal); G89.29 Other chronic pain; M17.11 Unilateral primary osteoarthritis, right knee; Z86.718 Personal history of other venous thrombosis and embolism; Z79.01 Long term (current) use of anticoagulants; Z88.5 Allergy status to narcotic agent
CPT/HCPCS: 73564; 80048; 85027; 85610; 85730; 93971; 99281; 99284

== ENCOUNTER 2018-06-09 16:24 | Emergency (ER) | payer OTHER ==
[~2018-06-09] VITALS: Ht 167.6 cm; Wt 98.0 kg
[~2018-06-09 16:24] MED LIST changes: +PERCOCET 5/31 TABLET PO
[2018-06-09 18:19] LABS: BASOPHIL (%) 0.5 % (0-1); BASOPHIL COUNT 0.1 K/uL (0-0.1); EOSINOPHIL (%) 1.1 % (0-5); EOSINOPHIL COUNT 0.1 K/uL (0-0.3); HEMATOCRIT 38.8 % (36.0-46.0); HEMOGLOBIN 12.5 G/DL (11.9-15.5); IMMATURE GRANULOCYTE (%) 0.2 % (0.0-0.7); LYMPHOCYTE (%) 14.5 % (15-42); LYMPHOCYTE COUNT 1.3 K/uL (1.0-2.8); MCH 31.6 PG (29.0-34.0); MCHC 32.2 G/DL (30.0-36.0); MONOCYTE (%) 7.5 % (3-12); MONOCYTE COUNT 0.7 K/uL (0-0.8); NEUTROPHIL (%) 76.2 % (45-76); PLATELET COUNT 281 K/uL (156-360); RBC DIS.WIDTH-CV 12.5 % (11.8-14.6); RBC DIS.WIDTH-SD 45.1 % (39-53); RED BLOOD COUNT 3.96 M/uL (3.80-5.20); WHITE BLOOD COUNT 9.2 K/uL (4.1-10.2)
[2018-06-09 18:28] LABS: ALBUMIN 3.4 g/dL (3.2-4.8)
[2018-06-09 18:29] LABS: CHLORIDE 104 mEq/L (99-109); POTASSIUM 3.8 mEq/L (3.7-5.4); SODIUM 139 mEq/L (136-147)
[2018-06-09 18:31] LABS: GLUCOSE 126 mg/dL (70-99); TOTAL PROTEIN 6.7 g/dL (6.4-8.3)
[2018-06-09 18:33] LABS: TOTAL BILIRUBIN 0.4 mg/dL (0.0-1.0)
[2018-06-09 18:34] LABS: ALKALINE PHOSPHATASE 86 IU/L (3-129)
[2018-06-09 18:35] LABS: CREATININE 1.2 mg/dL (0.6-1.3); GFR ESTIMATE (CALCULATED) 46 mL/min/
[2018-06-09 18:36] LABS: AST (GOT) 18 IU/L (2-34); UREA NITROGEN (BUN) 19 mg/dL (9-23)
[2018-06-09 18:38] LABS: ALT (GPT) 15 IU/L (3-49); LIPASE 32 U/L (1.0-51.0)
[2018-06-09 18:48] LABS: APPEARANCE CLOUDY ((CLEAR)); BILIRUBIN NEGATIVE; BLOOD SMALL; COLOR YELLOW ((YELLOW)); GLUCOSE (STRIP) NEGATIVE; KETONES NEGATIVE; LEUKOCYTES LARGE; NITRITE NEGATIVE; PROTEIN (STRIP) NEGATIVE; SPECIFIC GRAVITY 1.018 (1.000-1.030); UROBILINOGEN 0.2 MG/DL (0.2-1.0)
[2018-06-09 19:07] LABS: BACTERIA 1+ /HPF; EPITHELIAL CELLS 3+ /HPF; MUCUS TRACE /LPF; UCUL ADDED? YES; WHITE BLOOD CELLS 20-30 /HPF (0-5)
[2018-06-09] MEDS ORDERED: ZOFRAN4 MG PO (20:27)
[2018-06-09] MEDS ORDERED: ROXICODONE5 MG PO (20:27)
[2018-06-09] MEDS ORDERED: KEFLEX500 MG PO (20:27)
[2018-06-09 21:15] VITALS: BP 160/67
== END 2018-06-09 21:29 | disposition home or self-care (01) ==
LOC: EME 16:24
PROVIDERS: Emergency Medicine
DX: R10.13 Epigastric pain (principal); R11.2 Nausea with vomiting, unspecified; R19.7 Diarrhea, unspecified; N39.0 Urinary tract infection, site not specified; I70.1 Atherosclerosis of renal artery; I70.0 Atherosclerosis of aorta; I70.8 Atherosclerosis of other arteries; I10 Essential (primary) hypertension; E78.5 Hyperlipidemia, unspecified; E11.9 Type 2 diabetes mellitus without complications; Z79.84 Long term (current) use of oral hypoglycemic drugs; Z79.52 Long term (current) use of systemic steroids; Z79.82 Long term (current) use of aspirin; Z79.01 Long term (current) use of anticoagulants; Z90.49 Acquired absence of other specified parts of digestive tract
CPT/HCPCS: 74177; 80053; 81003; 83605; 83690; 85025; 87086; 99281; 99285; J0696; J2270; J2405